=== PATIENT | female | born 1960 | race Caucasian/White ===

== ENCOUNTER 2019-11-12 20:02 | Emergency (ER) | payer OTHER ==
[~2019-11-12] VITALS: Ht 149.9 cm; Wt 94.3 kg
[2019-11-12] MEDS ORDERED: BUSPIRONE HCL15 MG PO (20:27)
[2019-11-12] MEDS ORDERED: PLAVIX 75 MG TA75 MG PO (20:28)
[2019-11-12] MEDS ORDERED: CARVEDILOL12.5 MG PO (20:28)
[2019-11-12] MEDS ORDERED: DRIZALMA SPRINK60 MG PO (20:28)
[2019-11-12] MEDS ORDERED: GABAPENTIN800 M1 PO (20:29)
[2019-11-12] MEDS ORDERED: FENOFIBRATE150 MG PO (20:29)
[2019-11-12] MEDS ORDERED: LEVEMIR FL100 UNIT/2 SUBQ (20:30)
[2019-11-12] MEDS ORDERED: ISOSORBIDE DINI30 MG PO (20:30)
[2019-11-12] MEDS ORDERED: COZAAR 25 MG TA25 M2 PO (20:31)
[2019-11-12] MEDS ORDERED: MAPAP ARTHRITI650 MG PO (20:31)
[2019-11-12] MEDS ORDERED: LORATIDINE 10 M10 M1 PO (20:31)
[2019-11-12] MEDS ORDERED: SEROQUEL 100 M100 M1 PO (20:32)
[2019-11-12] MEDS ORDERED: PROTONIX40 M2 PO (20:32)
[2019-11-12] MEDS ORDERED: SIMVASTATIN80 MG PO (20:33)
[2019-11-12] MEDS ORDERED: DESYREL150 MG PO (20:33)
[2019-11-12] MEDS ORDERED: VICTOZA0.6 MG/0.1 SUBQ (20:34)
[2019-11-12] MEDS ORDERED: MIRALAX119 GM PO (20:35)
[2019-11-12] MEDS ORDERED: PROMETHAZINE HC25 MG RECTAL (20:35)
[2019-11-12] MEDS ORDERED: TRAMADOL 50 MG50 MG PO (20:36)
[2019-11-12] MEDS ORDERED: STOOL SOFTENER240 MG PO (20:36)
[2019-11-12] MEDS ORDERED: TRAMADOL HCL50 MG PO (20:36)
[2019-11-12] MEDS ORDERED: PERCOCET 5-3251 EACH PO (23:55)
[2019-11-13 00:57] VITALS: BP 130/83
== END 2019-11-13 00:58 | disposition home or self-care (01) ==
LOC: M.ERS 20:02
DX: S80.211A Abrasion, right knee, initial encounter (principal); M54.2 Cervicalgia; M54.5 Low back pain; M25.522 Pain in left elbow; I10 Essential (primary) hypertension; E78.5 Hyperlipidemia, unspecified; E11.9 Type 2 diabetes mellitus without complications; K21.9 Gastro-esophageal reflux disease without esophagitis; M81.0 Age-related osteoporosis without current pathological fracture; Z79.899 Other long term (current) drug therapy; Z79.4 Long term (current) use of insulin; Z88.8 Allergy status to other drugs, medicaments and biological substances; Z88.2 Allergy status to sulfonamides; W01.0XXA Fall on same level from slipping, tripping and stumbling without subsequent striking against object, initial encounter; Y93.89 Activity, other specified; Y92.098 Other place in other non-institutional residence as the place of occurrence of the external cause; Y99.8 Other external cause status

== ENCOUNTER 2020-05-20 13:54 | Emergency (ER) | payer OTHER ==
[~2020-05-20] VITALS: Ht 149.9 cm; Wt 107.5 kg
[~2020-05-20 13:54] MED LIST: BUSPIRONE HCL15 MG PO; CARVEDILOL12.5 MG PO; COZAAR 25 MG TA25 M2 PO; DESYREL150 MG PO; DRIZALMA SPRINK60 MG PO; FENOFIBRATE150 MG PO; GABAPENTIN800 M1 PO; ISOSORBIDE DINI30 MG PO; LEVEMIR FL100 UNIT/2 SUBQ; LORATIDINE 10 M10 M1 PO; MAPAP ARTHRITI650 MG PO; MIRALAX119 GM PO; PERCOCET 5-3251 EACH PO; PLAVIX 75 MG TA75 MG PO; PROMETHAZINE HC25 MG RECTAL; PROTONIX40 M2 PO; SEROQUEL 100 M100 M1 PO; SIMVASTATIN80 MG PO; STOOL SOFTENER240 MG PO; TRAMADOL 50 MG50 MG PO; TRAMADOL HCL50 MG PO; VICTOZA0.6 MG/0.1 SUBQ
[2020-05-20] MEDS ORDERED: BRINTELLIX20 MG PO (14:03)
[2020-05-20] MEDS ORDERED: VASCEPA1 GM PO (14:03)
[2020-05-20] MEDS ORDERED: METRONIDAZOLE500 M4 PO (14:03)
[2020-05-20 15:03] LABS: PROTIME 10.3 Seconds (9.20-11.50)
[2020-05-20] MEDS ORDERED: HYDROCODON-ACE1 EAC7 PO (15:43)
[2020-05-20 16:02] VITALS: BP 145/65
== END 2020-05-20 16:03 | disposition home or self-care (01) ==
LOC: M.ERS 13:54
PROVIDERS: Emergency Medicine Emergency Medical Services
DX: S82.431A Displaced oblique fracture of shaft of right fibula, initial encounter for closed fracture (principal); I10 Essential (primary) hypertension; E78.5 Hyperlipidemia, unspecified; E11.9 Type 2 diabetes mellitus without complications; K21.9 Gastro-esophageal reflux disease without esophagitis; G89.29 Other chronic pain; F17.210 Nicotine dependence, cigarettes, uncomplicated; Z88.2 Allergy status to sulfonamides; Z88.1 Allergy status to other antibiotic agents; Z88.6 Allergy status to analgesic agent; Z88.8 Allergy status to other drugs, medicaments and biological substances; W01.0XXA Fall on same level from slipping, tripping and stumbling without subsequent striking against object, initial encounter; Y93.89 Activity, other specified; Y92.89 Other specified places as the place of occurrence of the external cause; Y99.8 Other external cause status

== ENCOUNTER 2020-08-05 20:13 | Inpatient (IN) | payer OTHER ==
[~2020-08-05] VITALS: Ht 165.1 cm; Wt 112.9 kg
--- NOTE | ~2020-08-05 | EMS ---
[facility] [place] [address] EMS Patient Care Report Name: SHABBIR DOMINGUEZ Room: [address] IN [facility]#: [id number] Admission: 08/05/20 Attend Phys: Danette Ureña MD Discharge: Date of : 56 Report #: [id number] THIS REPORT FOR: //name// Report Transmitted: 08/05/2020 22:01 EMS Care Summary [facility] Incident [id number] @ 08/05/2020 19:27 Incident Location [address] 107 Patient SHABBIR DOMINGUEZ Female, 59 Years 1960 Patient Address [address] [place] [address] Patient History Diabetes,Hypertension (HTN),Seizures,Stroke/CVA,Gastro-Esophageal Reflux Disease (GERD),Cardiac Condition - Other,Cardiac - Stent, Patient Allergies Diphenhydramine,Haldol,Lisinopril, Patient Medications Simvastatin, Tramadol, Chief Complaint chest pain Disposition Transported No Lights/[place] Dispatch Reason Chest Pain (Non-Traumatic) Transported To [facility] Narrative Dispatched [address], for a patient with chest pain and difficulty breathing. While in route, Dispatch updated [employer] with the following [facility] [place] [address] EMS Patient Care Report Name: SHABBIR DOMINGUEZ Room: [address] IN [facility]#: [id number] Admission: 08/05/20 Attend Phys: Danette Ureña MD Discharge: Date of : 56 Report #: [id number] information. Patient was said to be meeting us at the front door. Nothing further was noted prior to our arrival. Once on scene, the patient was found walking back towards her apartment. She was AOX3 with a GCS of 15. She was asking for an EKG to be assessed before she would agree to go to Hospital. She stated that she did have previous cardiac history and that she was having chest pain that went to her back and arms. 12 lead EKG showed normal rhythm with RBB, which patient stated to be her normal. Patient now agreed to be transported to Hospital for further evaluation. While in route, the patient was continuously monitored. She was in the same rhythm and vitals showed hypertension and a blood sugar of 300. An IV was started and set to keep the vein open. Patient was given 324 mg of Aspirin and 1 nitro tab. Her BP now read within the normal limits. She was kept in a position of comfort and secondary exam was completed. Patients pain subsided from 8 out of 10 to 3 out of 10. Nothing further pertinent was noted. On arrival to [facility], we were shown to room 16. Patient was assisted to the Hospital bed and left with all belongings. She was now asked to sign PCR and report was given to the RN. RN now signed PCR and the patient was left in the care of the staff at [facility]. Initial Vitals @19:43P: 97,R: 12,BP: 208/110,SpO2: 97, @20:02P: 90,R: 12,BP: 147/86,SpO2: 97, @19:31P: 99,R: 12,BP: 194/106,GCS: 15,Glucose: 300,SpO2: 96,Revised Trauma: 12, Assessments @19:57MENTAL:Person Oriented,Time Oriented,Event Oriented,Place Oriented,SKIN:No Abnormalities,HEENT:Head/Face: No Abnormalities,Eyes: No Abnormalities,Neck/Airway: No Abnormalities,LUNG SOUNDS:General: No Abnormalities,Left Upper: No Abnormalities,Right Upper: No Abnormalities,Left Lower: No Abnormalities,Right Lower: No Abnormalities,ABDOMEN:General: No Abnormalities,Left Upper: No Abnormalities,Right Upper: No Abnormalities,Left Lower: No Abnormalities,Right Lower: No Abnormalities,PELVIS//GI:No Abnormalities,EXTREMITIES:Left Arm: No Abnormalities,Right Arm: No Abnormalities,PULSE:NEURO:No Abnormalities, Impression Chest Pain / Discomfort Procedures @19:46Aspirin - 324 Milligrams (mg) - OralResponse: Improved@19:48Nitroglycerin - 0.4 Milligrams (mg) - SublingualResponse: Improved@19:49Lactated Ringers 500cc (20 ga) Site: Forearm-LeftResponse: [place] [address] EMS Patient Care Report Name: SHABBIR DOMINGUEZ Room: [address] IN [facility]#: [id number] Admission: 08/05/20 Attend Phys: Danette Ureña MD Discharge: Date of : 56 Report #: [id number] Timeline 19:26,Call Received 19:27,Dispatched 19:28,En Route 19:29,On Scene 19:31,At Patient 19:31,BP: 194/106 M,PULSE: 99,RR: 12 R,SPO2: 96 Ox,ETCO2: ,B,PAIN: ,GCS: 15, 19:43,BP: 208/110 M,PULSE: 97,RR: 12 R,SPO2: 97 Ox,ETCO2: ,BG: ,PAIN: ,GCS: , 19:46,Aspirin - 324 Milligrams (mg) - Oral,Response: Improved 19:47,Depart Scene 19:48,Nitroglycerin - 0.4 Milligrams (mg) - Sublingual,Response: Improved 19:49,Lactated Ringers 500cc 20 ga Site: Forearm-Left,Response: ImprovedSucceeded, 20:02,BP: 147/86 M,PULSE: 90,RR: 12 R,SPO2: 97 Ox,ETCO2: ,BG: ,PAIN: ,GCS: , 20:09,At Destination 20:12,Transfer Patient 20:22,Call Closed 20:38,In District Disclaimer v1.1 Copyright 2020 [employer] This EMS Care Summary contains data elements from the applicable legal record (which may be displayed differently). It is designed to provide pertinent information for the following purposes: continuity of care, clinical quality, and state data reporting. The complete legal record is available to ED staff and administrators of the receiving hospital in [employer] Patient Tracker. All data is provided "as is."
[~2020-08-05 20:13] MED LIST changes: +BRINTELLIX20 MG PO; +HYDROCODON-ACE1 EAC7 PO; +METRONIDAZOLE500 M4 PO; +VASCEPA1 GM PO
[2020-08-05 20:14] VITALS: BP 203/109
[2020-08-05] MEDS ORDERED: LEVEMIR100 UNIT/1 SUBQ (20:42)
[2020-08-05] MEDS ORDERED: COZAAR 25 MG TA25 M1 PO (20:43)
[2020-08-05] MEDS ORDERED: SIMVASTATIN80 MG PO (20:45)
[2020-08-05] MEDS ORDERED: TRAMADOL 50 MG50 MG PO (20:46)
[2020-08-05] MEDS ORDERED: VITAMIN D3 COM1 EACH PO (20:47)
[2020-08-05] MEDS ORDERED: DESYREL150 MG PO (20:48)
[2020-08-05] MEDS ORDERED: TRANSDERM-SCOP1 EACH TRANSDERM (20:49)
[2020-08-05 20:50] LABS: URINE BILIRUBIN NEGATIVE (Negative); URINE BLOOD TRACE (Negative); URINE CLARITY CLEAR; URINE COLOR YELLOW; URINE GLUCOSE-RANDOM 2+ (Negative); URINE KETONES NEGATIVE (Negative); URINE LEUKOCYTES-REFLEX NEGATIVE (Negative); URINE NITRITE-REFLEX NEGATIVE (Negative); URINE PROTEIN NEGATIVE (Negative); URINE UROBILINOGEN 0.2 E.U./dl (0.2-1.0)
[2020-08-05 20:51] LABS: ABSOLUTE LYMPHOCYTES 1.1 thou/uL (0.8-5.3); ABSOLUTE MONOCYTES 0.2 thou/uL (0.0-1.2); ABSOLUTE NEUTROPHILS 6.5 thou/uL (1.6-8.1); BASOPHILS 0.5 %; HEMATOCRIT 38.1 % (37.0-47.0); HEMOGLOBIN 12.4 gm/dL (12.0-15.0); LYMPHOCYTES 14.6 %; MCH 29.5 pg (26.0-34.0); MCHC 32.6 g/dL (28.0-37.0); MCV 90.5 fL (80.0-100.0); MONOCYTES 2.1 %; MPV 7.5 fl. (7.2-11.1); NUCLEATED RBCS 0 /100WBC; PLATELET COUNT* 272 thou/uL (150-400); POLYS 82.8 %; RBC 4.21 mil/uL (4.20-5.00); RDW-CV 15.4 % (10.5-14.5); WBC 7.8 thou/uL (4.0-11.0)
[2020-08-05] MEDS ORDERED: ABILIFY 5 MG TAB5 MG PO (20:52)
[2020-08-05] MEDS ORDERED: ADMELOG SO100 UNIT/1 SUBQ (20:52)
[2020-08-05] MEDS ORDERED: FLEXERIL PO (20:53)
[2020-08-05] MEDS ORDERED: CALCIUM CARBON500 MG PO (20:53)
[2020-08-05] MEDS ORDERED: ONDANSETRON ODT4 MG PO (20:54)
[2020-08-05] MEDS ORDERED: PHENERGAN 25 MG25 MG PO (20:54)
[2020-08-05] MEDS ORDERED: AIMOVIG AU140 MG/1 M SUBQ (20:55)
[2020-08-05] MEDS ORDERED: SEROQUEL 50 MG50 M1 PO (20:56)
[2020-08-05 20:59] LABS: CALCIUM 8.9 mg/dL (8.5-10.1); CREATININE 1.1 mg/dL (0.6-1.3); POTASSIUM 4.4 mmol/L (3.5-5.1)
[2020-08-05 21:10] LABS: ALBUMIN 3.3 g/dL (3.4-5.0); MAGNESIUM 1.4 mg/dL (1.8-2.4); TOTAL BILIRUBIN 0.3 mg/dL (<0.1-1.0); TOTAL PROTEIN 7.6 g/dL (6.4-8.2)
[2020-08-06] VITALS (28 sets, daily range): BP systolic 75–179; BP diastolic 37–87
[2020-08-06 10:59] LABS: CHOLESTEROL 152 mg/dL (<200); HDL CHOLESTEROL 52 mg/dL (>40); LDL CHOLESTEROL 56 mg/dL (<100); TC:HDL 2.9 Ratio (Not establshd); TRIGLYCERIDE 224 mg/dL (<150); VLDL 45 mg/dL (<40)
[2020-08-06 11:04] LABS: SERUM ASSESSMENT Clear
--- NOTE | 2020-08-06 11:21 | EKG ---
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 : 1960 Requested By: Sarah Vincent Order Number: [id number] MD: Ramírez Melgar Measurements Intervals [place] Rate: 97 P: 99 VA: 184 QRS: -108 QRSD: 145 T: 42 QT: 373 QTc: 474 Interpretive Statements Sinus rhythm Right bundle branch block Inferior infarct, old Anterior scar cannot be excluded No previous ECG available for comparison Electronically Signed On 08-06-2020 11:21:22 CDT by Ramírez Melgar [email or web address] <ELECTRONICALLY SIGNED> By: Ramírez Melgar MD, [facility] 08/06/20 1121 17 17 Ramírez Melgar MD, [facility] /EPI
--- NOTE | 2020-08-06 11:22 | EKG ---
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[place] : 1960 Requested By: Sarah Vincent Order Number: [id number] MD: Ramírez Melgar Measurements Intervals [place] Rate: 90 P: 62 NE: 194 QRS: -131 QRSD: 143 T: 34 QT: 407 QTc: 498 Interpretive Statements Sinus rhythm Right bundle branch block Inferior and anterolateral scars must be considered Compared to ECG 08/05/2020 20:18:26 No significant changes Electronically Signed On 08-06-2020 11:22:16 CDT by Ramírez Melgar [email or web address] <ELECTRONICALLY SIGNED> By: Ramírez Melgar MD, FAC 08/06/201121 99 99 Ramírez Melgar MD, FAC /EPI
[2020-08-06 12:44] LABS: ABSOLUTE BASOPHILS 0.1 thou/uL (0.0-0.2); ABSOLUTE EOSINOPHILS 0.1 thou/uL (0.0-0.7); ABSOLUTE MONOCYTES 0.3 thou/uL (0.0-1.2); ABSOLUTE NEUTROPHILS 4.6 thou/uL (1.6-8.1); BASOPHILS 0.8 %; EOSINOPHILS 1.3 %; HEMATOCRIT 35.1 % (37.0-47.0); HEMOGLOBIN 11.6 gm/dL (12.0-15.0); MCH 30.2 pg (26.0-34.0); MCHC 33.1 g/dL (28.0-37.0); MCV 91.5 fL (80.0-100.0); MONOCYTES 4.1 %; MPV 7.7 fl. (7.2-11.1); NUCLEATED RBCS 0 /100WBC; PLATELET COUNT* 289 thou/uL (150-400); POLYS 56.8 %; RBC 3.84 mil/uL (4.20-5.00); RDW-CV 15.4 % (10.5-14.5); WBC 8.1 thou/uL (4.0-11.0)
[2020-08-06 12:51] LABS: CALCIUM 8.9 mg/dL (8.5-10.1); POTASSIUM 4.1 mmol/L (3.5-5.1)
[2020-08-06 12:58] LABS: PCO2 34.3 mmHg (35.0-45.0); pH 7.422 (7.340-7.450)
[2020-08-06 13:00] LABS: PO2 148.1 mmHg (75.0-100.0)
[2020-08-07] VITALS (129 sets, daily range): BP systolic 63–155; BP diastolic 28–76
[2020-08-07 03:59] LABS: ABSOLUTE BASOPHILS 0.1 thou/uL (0.0-0.2); ABSOLUTE EOSINOPHILS 0.1 thou/uL (0.0-0.7); ABSOLUTE LYMPHOCYTES 2.3 thou/uL (0.8-5.3); ABSOLUTE MONOCYTES 0.5 thou/uL (0.0-1.2); ABSOLUTE NEUTROPHILS 5.7 thou/uL (1.6-8.1); BASOPHILS 0.7 %; EOSINOPHILS 0.7 %; HEMATOCRIT 27.5 % (37.0-47.0); LYMPHOCYTES 27.2 %; MCH 30.5 pg (26.0-34.0); MCHC 33.9 g/dL (28.0-37.0); MONOCYTES 5.6 %; MPV 7.9 fl. (7.2-11.1); NUCLEATED RBCS 0 /100WBC; PLATELET COUNT* 241 thou/uL (150-400); POLYS 65.8 %; RBC 3.06 mil/uL (4.20-5.00); RDW-CV 15.3 % (10.5-14.5); WBC 8.6 thou/uL (4.0-11.0)
[2020-08-07 04:18] LABS: ALBUMIN 2.8 g/dL (3.4-5.0); ALKALINE PHOSPHATASE 74 U/L (46-116); ANION GAP 7 mmol/L (7-16); BUN 20 mg/dL (7-18); CHLORIDE 103 mmol/L (98-107); CO2 26 mmol/L (21-32); CREATININE 1.4 mg/dL (0.6-1.3); GLUCOSE 113 mg/dL (70-99); MAGNESIUM 3.2 mg/dL (1.8-2.4); POTASSIUM 3.9 mmol/L (3.5-5.1); SGOT 14 U/L (15-37); SGPT 9 U/L (30-65); SODIUM 136 mmol/L (136-145); TOTAL BILIRUBIN < 0.1 mg/dL (<0.1-1.0); TOTAL PROTEIN 5.9 g/dL (6.4-8.2)
[2020-08-07 04:33] LABS: HEMOGLOBIN 9.3 gm/dL (12.0-15.0)
--- NOTE | 2020-08-07 13:59 | CON ---
[address] [address] CONSULTATION Name: SHABBIR DOMINGUEZ Room: [address] IN .R.#: [id number] Admission: 08/05/20 Attend Phys: Danette Ureña MD Discharge: Date of : 56 Report #: [id number] THIS REPORT FOR: cc: Nusrat Salinas MD, Jayne MD Liston, Michael J. MD [facility] ~ DOC #: [id number] cc: MD Bradley Watters MD DATE OF CONSULTATION: 08/06/2020 CARDIOLOGY CONSULTATION INDICATION: Non-ST elevation myocardial infarction. HISTORY OF PRESENT ILLNESS: The patient is a very pleasant 59-year-old white female who presented to the hospital last night with midsternal chest discomfort and pressure and tightness radiating through to the back and to the insides of both arms. She had nausea, but no diaphoresis with this. The patient presented to the emergency room where she received sublingual nitroglycerin with partial relief of her symptoms. Her initial troponin was 0.3 and has trended downward since. EKG shows sinus rhythm with right bundle branch block. I do not appreciate any ST elevation. The patient denies any similar pain in the recent past. She does report a vague history of perhaps some catheterizations in the past where she was told the arteries were too small for intervention. 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 Risk factors include hypertension, dyslipidemia, type 2 diabetes mellitus, family history of coronary artery disease and tobacco use. PAST MEDICAL HISTORY: 1. Coronary artery disease. 2. Hypertension. 3. Hyperlipidemia. 4. Type 2 diabetes mellitus. 5. Osteoporosis. 6. GERD. ALLERGIES: CLONAZEPAM, DIPHENHYDRAMINE, HALOPERIDOL, LISINOPRIL, SULFA, TRIMETHOPRIM. HOME MEDICATIONS: Tylenol 650 mg p.o. t.i.d., Abilify 5 mg at bedtime, buspirone 15 mg t.i.d., calcium carbonate 500 mg daily, carvedilol 3.125 mg b.i.d., Plavix 75 mg daily, Flexeril 5 mg at bedtime, Colace 240 mg daily, [place] [address] CONSULTATION Name: SHABBIR DOMINGUEZ Room: [address]#: [id number] Admission: 08/05/20 Attend Phys: Danette Ureña MD Discharge: Date of : 56 Report #: [id number] duloxetine 60 mg daily, Erenumab-aooe 140 mg subcutaneously monthly, gabapentin 800 mg t.i.d., Vascepa 1 g daily, Levemir 45 units subQ a.m., lispro insulin 100 units subQ a.c., isosorbide dinitrate 30 mg daily, Victoza 1.2 mg subcutaneous daily, loratadine 10 mg daily, losartan 100 mg daily, multivitamin daily, Zofran 4 mg q. 6 hours p.r.n., Protonix 40 mg daily, MiraLax 238 g daily, Phenergan 25 mg q. 6 hours p.r.n., Seroquel 50 mg daily, transderm scopolamine patch q. 3 days, simvastatin 20 mg at bedtime, tramadol 50 mg t.i.d. p.r.n., trazodone 50 mg at bedtime, Trintellix 20 mg daily. SOCIAL HISTORY: The patient reports daily smoking. Denies alcohol use. REVIEW OF SYSTEMS: A 14-point review of systems as per HPI, otherwise unremarkable. PHYSICAL EXAMINATION: VITAL SIGNS: Stable. Blood pressure 145/82, pulse of 78 and regular. GENERAL: This is a pleasant female in no distress. Mood and affect appropriate. HEENT: Extraocular muscles intact. Mucous membranes are moist. NECK: Shows no jugular venous distention. There are no carotid bruits. CHEST: Reveals clear lung baum without wheezes or rales. HEART: Reveals a distant S1 and S2. I do not appreciate gallop or murmur. ABDOMEN: Reveals normal bowel sounds. Abdomen is soft and nontender. EXTREMITIES: Shows no edema. SKIN: Dry. A 12-lead EKG shows sinus rhythm with right bundle branch block. I do not appreciate acute ST segment abnormality. LABORATORY DATA: Reviewed. Sodium 135, potassium 4.4, chloride 101, bicarbonate 22, anion gap 11, BUN 14, creatinine 1.1, serum glucose 346, AST 11, lipase 32, total bilirubin 0.3, calcium 8.9, magnesium 2.1, alkaline phosphatase 96, ALT 12, total protein 7.6, albumin 3.3, EGFR 50, troponins 0.13, 0.14 and 0.37, NT-proBNP 1865, coags are within normal limits. White blood cell count 7.8, hemoglobin 12.4, platelet count 272,000. Chest x-ray, no acute pulmonary process. IMPRESSION AND RECOMMENDATION: 1. Non-ST elevation myocardial infarction. The patient will be taken to the cardiac catheterization lab for coronary angiography and left heart catheterization. Further intervention will be pending results of that study. Continuing Plavix at this time. The patient is on a heparin drip. 2. Hypertension. Will adjust antihypertensive regimen post-catheterization as necessary. [facility] [address] [place] [address] CONSULTATION Name: CHEVYJuancarlosSHABBIR L Room: [address] IN ..#: [id number] Admission: 08/05/20 Attend Phys: Danette Ureña MD Discharge: Date of : 56 Report #: [id number] 3. Dyslipidemia. Fasting lipid profile pending. We will adjust statin agent for goal LDL of 70 or less. 4. Diabetes per primary physician and hospitalist. 5. Tobacco use. Smoking cessation discussed and advised. Bradley Feng MD MJL/MAX <ELECTRONICALLY SIGNED> By: Bradley Feng MD, [facility] 08/07/20 1359 0940 2252[facility] Samaritan Hospitalgiuliana Feng MD, FAC /nt
--- NOTE | 2020-08-07 14:18 | EKG ---
[place] [address] ELECTROCARDIOGRAM REPORT Name: SHABBIR DOMINGUEZ Room: [address] ADM [place] .R.#: [id number] Admission: 08/05/20 Attend Phys: Danette Ureña, Discharge: Date of : 56 Date of Service: 08/06/20 0330 Report #: [id number] THIS REPORT FOR: //name// [facility] Test Date: 2020-08-06 Test Time: 03:30:39 Pat Name: SHABBIR DOMINGUEZ Department: Room: [facility] Gender: F Rn Charge: JJ05 : 1960 Requested By: Sarah Vincent Order Number: [id number] MD: Bradley Feng Measurements Intervals [place] Rate: 79 P: 44 MN: 194 QRS: -130 QRSD: 142 T: 11 QT: 425 QTc: 488 Interpretive Statements Sinus rhythm Right bundle branch block Inferior infarct, old Baseline wander in lead(s) III,V1 Compared to ECG 08/05/2020 22:00:45 Myocardial infarct finding now present Electronically Signed On 08-07-2020 14:18:41 CDT by Bradley Feng [email or web address] <ELECTRONICALLY SIGNED> By: Bradley Feng MD, [facility] 08/07/20 1418 9 9 Bradley Feng MD, [facility] /EPI
--- NOTE | 2020-08-07 14:31 | CARD ---
[address] [address] CARDIAC CATH REPORT Name: SHABBIR DOMINGUEZ Room: [address] IN [facility]#: [id number] Admission: 08/05/20 Attend Phys: Danette Ureña MD Discharge: Date of : 56 Report #: [id number] THIS REPORT FOR: cc: Nusrat Salinas MD, Jayne MD Liston, Michael J. MD [facility] ~ APPROVED REPORT Study performed: 08/06/2020 11:37:59 Patient Details Patient Status: In-Patient Room #: The patient is a 59 year-old female Event Personnel Bradley Feng Director Search, Beverly Whitley RN Cigarette Machine Operator, Ana Reyes RTR Monitor, Mahad Sullivan RTR Scrub Procedures Performed Art Access - R femoral artery, Left Heart Cath w/or w/o Coronaries LHC, Hemostasis w/ Mynx Admission/Lab Medications/Medications given during procedure Oxygen Nasal cannula 2 l per min Procedure Narrative The patient was brought urgently to the Cardiac Catheterization Laboratory and was prepped and draped in a sterile manner. The right femoral was infiltrated with 2% Lidocaine subcutaneous anesthesia. IV conscious sedation was used throughout procedure with appropriate monitoring and was performed in the presence of a registered nurse who was an independent trained observer other than the physician performing the procedure. A 6F Ultimum sheath was inserted into the right femoral artery. Coronary angiography was performed using coronary diagnostic catheters. The right coronary system was accessed and visualized with a 6F JR4 catheter. The left coronary system was accessed and visualized with a 6F JL4 catheter. The left ventricle was accessed and visualized with a 6F Pigtail catheter. Left ventricular/Aortic Valve gradient assessed via catheter pullback. Left ventriculogram was performed in MAZARIEGOS projection. Pre-demployment femoral angiogram was performed . Closure device was deployed with a 6 Fr Mynx. The patient tolerated the procedure well and there were no complications associated with the procedure. [place] [address] CARDIAC CATH REPORT Name: SHABBIR DOMINGEUZ Room: [address]#: [id number] Admission: 08/05/20 Attend Phys: Danette Ureña MD Discharge: Date of : 56 Report #: [id number] Intraoperative Conscious Sedation Sedation start time: 11:40 Case end Time: 12:00 Fentanyl 50 mcg Versed 2 mg Fluoro Time: 2.3 minutes Dose: DAP 32651 cGycm2 876 mGy Contrast Type and Amount: 90 Coronary Angiography The patient's coronary anatomy is right dominant. Diagnostic Cath Left Main The left main coronary exhibits a 90% distal eccentric stenosis LAD We updated descending coronary artery has an 80% narrowing proximally followed by a 70% narrowing in the midportion and a 90% stenosis distally. Diagonal 1 The first diagonal branch appears occluded and fills distally by collateral flow. Circumflex The circumflex coronary artery exhibits significant calcification and plaque seen proximally up to 60%. OM1 The first obtuse marginal branch is a very small diffusely diseased branch OM2 The second obtuse marginal branch exhibits 90% narrowing proximally. OM3 Third obtuse marginal branch appears free of significant disease. Right Coronary The right coronary artery disease has 70% narrowing proximally and 60% narrowing in its midportion. Distally there is a 90% stenosis. R PDA The PDA appears occluded at its origin. RPLV The right posterior lateral branch is a small branch with diffuse plaquing. Left Ventriculography The left ventricle is normal in size with normal contractility. The left ventricular ejection fraction is estimated to be 60-65%. Left ventricular wall motion abnormalities are not present. Hemodynamics The aortic pressure is 142/61 mmHg with a mean of 95 mmHg. The left ventricular pressure is 135/8 mmHg with a [place] [address] CARDIAC CATH REPORT Name: SHABBIR DOMINGUEZ Room: [address] IN [facility]#: [id number] Admission: 08/05/20 Attend Phys: Danette Ureña MD Discharge: Date of : 56 Report #: [id number] ventricular end diastolic pressure is 20 mmHg. Conclusion 1. Left main coronary artery disease. 2. Severe three-vessel coronary artery disease as outlined above. 3. Elevated left ventricular end-diastolic pressure consistent with acute diastolic heart failure. 4. Normal left ventricular systolic function. Recommendations 1. Aggressive risk factor modification. 2. Referral for coronary artery bypass grafting. <ELECTRONICALLY SIGNED> By: Bradley Feng MD, [facility] 08/07/20 1430 1430 1430Micgiuliana Feng MD, FACC /INF
[2020-08-08] VITALS (38 sets, daily range): BP systolic 44–188; BP diastolic 27–168
--- NOTE | 2020-08-08 11:28 | EKG ---
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
[2020-08-09] VITALS (19 sets, daily range): BP systolic 105–142; BP diastolic 45–92
[2020-08-09 04:33] LABS: HEMATOCRIT 27.6 % (37.0-47.0); MCH 29.9 pg (26.0-34.0); MCHC 32.8 g/dL (28.0-37.0); MCV 91.1 fL (80.0-100.0); RBC 3.03 mil/uL (4.20-5.00); RDW-CV 15.3 % (10.5-14.5); WBC 8.2 thou/uL (4.0-11.0)
[2020-08-09 04:39] LABS: CREATININE 1.1 mg/dL (0.6-1.3); POTASSIUM 4.5 mmol/L (3.5-5.1)
--- NOTE | 2020-08-09 08:14 | 2DMMODE ---
[place] [address] 2 D/M-MODE ECHOCARDIOGRAM Name: SHABBIR DOMINGUEZ Room: [address] IN [facility]#: [id number] Admission: 08/05/20 Attend Phys: Danette Ureña, Discharge: Date of : 56 Date of Service: 08/09/20 0814 Report #: [id number] THIS REPORT FOR: cc: Nusrat Salinas MD, Jayne MD Blick,Sridhar Butler MD [facility] ~ APPROVED REPORT Study performed: 08/08/2020 14:42:19 EXAM: Comprehensive 2D, Doppler, and color-flow Echocardiogram Patient Location: In-Patient Room #: 007 Status: routine BSA: 2.13 HR: 90 bpm BP: 105/48 mmHg Rhythm: NSR Other Information Study Quality: Good Indications Acute [place] 2D Dimensions IVSd: 9.82 (7-11mm) LVOT Diam: 19.21 (18-24mm) LVDd: 49.83 mm PWd: 9.52 (7-11mm) Ascending Ao: 32.57 (22-36mm) LVDs: 27.41 (25-40mm) Aortic Root: 29.56 mm Volumes Left Atrial Volume (Systole) LA ESV Index: 20.10 mL/m2 Aortic Valve AoV Peak Kelby.: 1.34 m/s AO Peak Gr.: 7.16 mmHg LVOT Max P.48 mmHg AO Mean Gr.: 3.89 mmHg LVOT Mean P.90 mmHg LVOT Max V: 1.17 m/s AO V2 VTI: 24.19 cm LVOT Mean V: 0.79 m/s CHERYL (VTI): 3.09 cm2 LVOT V1 VTI: 25.77 [place] [address] 2 D/M-MODE ECHOCARDIOGRAM Name: SHABBIR DOMINGUEZ Room: [address] IN ..#: [id number] Admission: 08/05/20 Attend Phys: Danette Ureña, Discharge: Date of : 56 Date of Service: 08/09/20 0814 Report #: [id number] Mitral Valve E/A Ratio: 0.79 MV Decel. Time: 265.93 ms MV E Max Kelby.: 1.11 m/s MV PHT: 77.12 ms MVA (PHT): 2.85 cm2 TDI E/Lateral E': 13.88 E/Medial E': 15.86 Medial E' Kelby.: 0.07 m/s Lateral E' Kelby.: 0.08 m/s Pulmonary Valve PV Peak Kelby.: 1.12 m/s PV Peak Gr.: 5.03 mmHg Left Ventricle The left ventricle is normal size. There is normal LV segmental wall motion. There is normal left ventricular wall thickness. Left ventricular systolic function is normal. The left ventricular ejection fraction is within the normal range. LVEF is 55-60%. Grade I - abnormal relaxation pattern. Right Ventricle The right ventricle is normal size. The right ventricular systolic function is normal. Atria The left atrium size is normal. The right atrium size is normal. Aortic Valve The aortic valve is normal in structure. No aortic regurgitation is present. There is no aortic valvular stenosis. Mitral Valve There is mitral annular calcification. The mitral valve is normal in structure. There is no mitral valve regurgitation noted. No evidence of mitral valve stenosis. Tricuspid Valve The tricuspid valve is normal in structure. There is no tricuspid valve regurgitation noted. Pulmonic Valve The pulmonary valve is normal in structure. There is no pulmonic valvular [place] [address] 2 D/M-MODE ECHOCARDIOGRAM Name: SHABBIR DOMINGUEZ Room: [address] IN [facility]#: [id number] Admission: 08/05/20 Attend Phys: Danette Ureña, Discharge: Date of : 56 Date of Service: 08/09/20 0814 Report #: [id number] Great Vessels The aortic root is normal in size. IVC is normal in size and collapses >50% with inspiration. Pericardium There is no pericardial effusion. <Conclusion> Left ventricular systolic function is normal. The left ventricular ejection fraction is within the normal range. <ELECTRONICALLY SIGNED> By: Sridhar Stoll MD, [facility] 08/09/20813 3 3 Sridhar Stoll MD, FAC /INF
--- NOTE | 2020-08-09 09:08 | EKG ---
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: [place] : 1960 Requested By: Sridhar Stoll Order Number: [id number] Fide MD: Bradley Feng Measurements Intervals [place] Rate: 84 P: 14 CO: 150 QRS: -104 QRSD: 143 T: 23 QT: 417 QTc: 493 Interpretive Statements Sinus rhythm Right bundle branch block Inferior infarct, old Baseline wander in lead(s) V6 Compared to ECG 08/06/2020 14:07:19 No significant changes noted Electronically Signed On 08-09-2020 9:07:45 CDT by Bradley Feng [email or web address] <ELECTRONICALLY SIGNED> By: Bradley Feng MD, FACC 08/09/20 0907 0 0 Bradley Feng MD, FACC /EPI
--- NOTE | 2020-08-09 09:08 | EKG ---
[place] [address] ELECTROCARDIOGRAM REPORT Name: SHABBIR DOMINGUEZ Room: [address] ADM IN .R.#: [id number] Admission: 08/05/20 Attend Phys: Danette Ureña, Discharge: Date of : 56 Date of Service: 08/09/20 0335 Report #: [id number] THIS REPORT FOR: //name// [facility] Test Date: 2020-08-09 Test Time: 03:35:49 Pat Name: SHABBIR DOMINGUEZ Department: Room: [address] Gender: F Mobile Developer: [place] : 1960 Requested By: Sridhar Stoll Order Number: [id number] MD: Bradley Feng Measurements Intervals [place] Rate: 89 P: -4 DC: 146 QRS: -111 QRSD: 148 T: 36 QT: 401 QTc: 488 Interpretive Statements Sinus rhythm Right bundle branch block Inferior infarct, old Compared to ECG 08/09/2020 01:41:33 Myocardial infarct finding now present Electronically Signed On 08-09-2020 9:07:59 CDT by Bradley Feng [email or web address] <ELECTRONICALLY SIGNED> By: Bradley Feng MD, FAC 08/09/20 0907 0335 4 Bradley Feng MD, FAC /EPI
[2020-08-09] MEDS ORDERED: ENOXAPARIN150 MG/11 SUBQ (09:34)
[2020-08-09] MEDS ORDERED: LIPITOR 40 MG T40 M1 PO (09:34)
[2020-08-09] MEDS ORDERED: Nicoderm 21MG/24HR P TRANSDERM (09:34)
== END 2020-08-09 12:55 | disposition short-term general hospital (02) | DRG 280 ==
LOC: M.ERS 20:13 → M.TBA-ER 22:19 → M.ICU 22:19 → M.2W 23:16 → M.ICU 08-06 13:20
PROVIDERS: Emergency Medicine; Internal Medicine Cardiovascular Disease; ADMIT Internal Medicine; ATTEND Internal Medicine
DX: I21.4 Non-ST elevation (NSTEMI) myocardial infarction (principal); I50.33 Acute on chronic diastolic (congestive) heart failure; E78.5 Hyperlipidemia, unspecified; E11.9 Type 2 diabetes mellitus without complications; G89.29 Other chronic pain; M81.0 Age-related osteoporosis without current pathological fracture; K21.9 Gastro-esophageal reflux disease without esophagitis; I16.0 Hypertensive urgency; I25.10 Atherosclerotic heart disease of native coronary artery without angina pectoris; M54.5 Low back pain; F41.9 Anxiety disorder, unspecified; F17.210 Nicotine dependence, cigarettes, uncomplicated; G40.909 Epilepsy, unspecified, not intractable, without status epilepticus; I95.9 Hypotension, unspecified; I11.0 Hypertensive heart disease with heart failure; I65.21 Occlusion and stenosis of right carotid artery; Z20.822 Contact with and (suspected) exposure to COVID-19; Z88.2 Allergy status to sulfonamides; Z88.8 Allergy status to other drugs, medicaments and biological substances; Z79.4 Long term (current) use of insulin; Z71.6 Tobacco abuse counseling

== ENCOUNTER 2021-03-10 10:12 | Emergency (ER) | payer OTHER ==
[~2021-03-10] VITALS: Ht 149.9 cm; Wt 107.5 kg
[~2021-03-10 10:12] MED LIST changes: +ABILIFY 5 MG TAB5 MG PO; +ADMELOG SO100 UNIT/1 SUBQ; +ADULT LOW DOSE81 MG PO; +AIMOVIG AU140 MG/1 M SUBQ; +CALCIUM CARBON500 MG PO; +CALTRATE-600 W1 EACH PO; +COLACE100 MG PO; +COZAAR 25 MG TA25 M1 PO; +COZAAR 50 MG TA50 MG PO; +COZAAR100 MG PO; +CYMBALTA60 MG PO; +ENOXAPARIN150 MG/11 SUBQ; +FERREX 150 PLU1 EAC1 PO; +FLEXERIL PO; +IPRAT-ALBUT 0.5-3 ML INH; +LACTULOSE20 GM/30 M PO; +LANTUS SOL100 UNIT/1 SUBQ; +LASIX 40 MG TAB40 MG PO; +LEVEMIR100 UNIT/1 SUBQ; +LIPITOR 40 MG T40 M1 PO; +METOPROLOL SUCC25 M1 PO; +MIRALAX17 GM PO; +NORCO 10-325 T1 EACH PO; +NORVASC5 MG PO; +Nicoderm 21MG/24HR P TRANSDERM; +ONDANSETRON ODT4 MG PO; +PACERONE 200 M200 M1 PO; +PHENERGAN 25 MG25 MG PO; +PULMICORT0.5 MG/22 INH; +SEROQUEL 50 MG50 M1 PO; +TRANSDERM-SCOP1 EACH TRANSDERM; +VITAMIN D3 COM1 EACH PO
[2021-03-10 10:41] LABS: URINE BILIRUBIN NEGATIVE (Negative); URINE BLOOD NEGATIVE (Negative); URINE CLARITY CLEAR; URINE COLOR YELLOW; URINE GLUCOSE-RANDOM 1+ (Negative); URINE KETONES NEGATIVE (Negative); URINE LEUKOCYTES-REFLEX 1+ (Negative); URINE NITRITE-REFLEX NEGATIVE (Negative); URINE PROTEIN NEGATIVE (Negative); URINE UROBILINOGEN 0.2 E.U./dl (0.2-1.0)
[2021-03-10 10:54] LABS: BACTERIA-REFLEX 1-9 Few /HPF (None Seen); CASTS None Seen /LPF (None Seen); SQUAMOUS 4-10 Moderate /LPF (0-3); URINE RBC 0-2 Rare /HPF (0-2); URINE WBC-REFLEX 6-15 Few /HPF (0-5)
[2021-03-10 10:55] LABS: CRYSTALS None Seen /LPF (None Seen)
[2021-03-10] MEDS ORDERED: PHENAZOPYRIDIN200 M2 PO (12:00)
[2021-03-10] MEDS ORDERED: MACROBID 100 M100 M1 PO (12:00)
[2021-03-10] MEDS ORDERED: APAP W/CODEINE1 TA2 PO (12:00)
[2021-03-10 12:10] VITALS: BP 147/74
== END 2021-03-10 12:10 | disposition home or self-care (01) ==
LOC: M.ERS 10:12
PROVIDERS: Emergency Medicine Emergency Medical Services
DX: N39.0 Urinary tract infection, site not specified (principal); I10 Essential (primary) hypertension; K21.9 Gastro-esophageal reflux disease without esophagitis; E11.9 Type 2 diabetes mellitus without complications; G40.909 Epilepsy, unspecified, not intractable, without status epilepticus; E78.5 Hyperlipidemia, unspecified; M81.0 Age-related osteoporosis without current pathological fracture; F41.9 Anxiety disorder, unspecified; F17.210 Nicotine dependence, cigarettes, uncomplicated; Z79.899 Other long term (current) drug therapy; Z79.82 Long term (current) use of aspirin; Z79.4 Long term (current) use of insulin; Z88.1 Allergy status to other antibiotic agents; Z88.8 Allergy status to other drugs, medicaments and biological substances; Z88.2 Allergy status to sulfonamides